=== PATIENT | male | born 1980 | race Caucasian/White ===

== ENCOUNTER 2022-05-13 14:38 | Outpatient (CLI) | payer BC, SELFPAY ==
[2022-05-13 13:43] LABS: Albumin* 4.6 g/dL (3.3-5.0)
[2022-05-13 13:46] LABS: Alkaline Phosphatase* 89 U/L (40-150); Aspartate Amino Transferase* 36 U/L (12-35); Bilirubin Direct* 0.2 mg/dL (0.0-0.5); Bilirubin Total* 1.1 mg/dL (0.1-1.5); Cholesterol* 225 mg/dL (90-199); HDL Cholesterol* 41 mg/dL (>=40); LDL Cholesterol Calculated 149 mg/dL (<100); Triglycerides* 177 mg/dL (40-149)
[2022-05-13 13:47] LABS: Alanine Aminotransferase* 57 U/L (4-50)
== END 2022-05-13 14:39 | disposition home or self-care (01) ==
PROVIDERS: PCP Emergency Medicine; Visit Provider Emergency Medicine
DX: Z00.00 Encounter for general adult medical examination without abnormal findings (principal); E78.5 Hyperlipidemia, unspecified; R53.83 Other fatigue; I10 Essential (primary) hypertension; F41.9 Anxiety disorder, unspecified; R73.01 Impaired fasting glucose
CPT/HCPCS: 80061; 80076

== ENCOUNTER 2022-05-14 17:44 | Outpatient (CLI) | payer BC, SELFPAY ==
[2022-05-17 07:55] LABS: Testosterone, Adult Male 425 ng/dL (300-890)
== END 2022-05-14 17:45 | disposition home or self-care (01) ==
LOC: LKVREF 17:47
PROVIDERS: PCP Emergency Medicine; Visit Provider Emergency Medicine
DX: R68.82 Decreased libido (principal)
CPT/HCPCS: 84403

== ENCOUNTER 2022-06-19 22:50 | Outpatient (CLI) | payer BC, SELFPAY ==
--- NOTE | 2022-07-02 11:46 | W.PM.SLEEP ---
Sleep Study Details Details Interpreting Provider: Jerardo Arndt MD Date of Sleep Study: 06/19/22 Sleep Study Details: STUDY TYPE:? Home ? BMI:? 26.9 ORDERING PROVIDER:? Amanda INDICATION:? Concerns about sleep apnea ? SLEEP SUMMARY:? 504 minutes monitored RESPIRATORY SUMMARY:? AHI 17.5, supine AHI 21.1, left lateral AHI 0.7 Low oxygen 88 0.1% of study oxygen less than 90% Snoring 8.7% PERIODIC LIMB MOVEMENTS OF SLEEP:? Not recorded CARDIAC:? Ranged 52-99, mean 68.5 IMPRESSION:? Mild obstructive sleep apnea with supine position dependency RECOMMENDATION: CPAP AutoSet 4-17, dental appliance or could consider a trial of positional therapy with avoidance of supine sleep
== END 2022-06-19 22:51 | disposition home or self-care (01) ==
LOC: SLEEP 22:51
PROVIDERS: PCP Emergency Medicine; Visit Provider Emergency Medicine
DX: G47.33 Obstructive sleep apnea (adult) (pediatric) (principal)
CPT/HCPCS: 95806

== ENCOUNTER 2022-07-08 19:37 | Emergency (ER) | payer BC, SELFPAY ==
[2022-07-08] VITALS (15 sets, daily range): BP systolic 122–140; BP diastolic 74–88; PULSE 74–97; RESP 20; TEMP 36.4; O2SAT 95–99; BMI 27.3
--- NOTE | 2022-07-08 20:24 | CRLHL7_ITS ---
For Patients: As a result of the Cures Act, medical imaging exams and procedure reports are released immediately into your electronic medical record. You may view this report before your referring provider. If you have questions, please contact your health care provider. DATE: 07/08/2022 CLINICAL HISTORY: Patient with transient diplopia. TECHNIQUE: Standard helical CT image acquisition of the neck up to the skull base after bolus intravenous contrast enhancement. Multiplanar reconstructed images performed on a separate workstation. COMPARISON: CT same day. FINDINGS: The origins of the great vessels from the aortic arch are patent. The origin of the right vertebral artery is patent. The origin of the left vertebral artery is patent. The common carotid arteries are patent. There is no stenosis at the origin of the right internal carotid artery. There is no stenosis at the origin of the left internal carotid artery. The rest of the cervical segments of the internal carotid arteries are patent up to the skull base. The left vertebral artery is dominant. The cervical segments of the vertebral arteries are patent up to the skull base. The visualized lung apices are unremarkable. The thyroid gland is unremarkable. The soft tissues of the neck are unremarkable. There are degenerative changes in the cervical spine. IMPRESSION: Normal CT angiogram of the neck. Please note that all CT scans at this facility use dose modulation, iterative reconstruction, and/or weight-based dosing when appropriate to reduce radiation dose to as low as reasonably achievable. Dictated by Alan Beaulieu MD @ 07/09/2022 6:01:50 AM (Electronically Signed)
--- NOTE | 2022-07-08 20:24 | CRLHL7_ITS ---
For Patients: As a result of the Century Cures Act, medical imaging exams and procedure reports are released immediately into your electronic medical record. You may view this report before your referring provider. If you have questions, please contact your health care provider. DATE: 07/08/2022 CLINICAL HISTORY: Patient with transient diplopia. TECHNIQUE: Standard helical CT image acquisition through the intracranial circulation following intravenous administration of contrast material with bolus tracking. Multiplanar reconstructed images were performed and interpreted. COMPARISON: CT same day. FINDINGS: There is no proximal intracranial large vessel occlusion. There is an incidental 2.5mm right supraclinoid ICA aneurysm. The right middle cerebral artery and its branches are normal. The right anterior cerebral artery and its branches are normal. The left internal carotid artery is normal. The left middle cerebral artery and its branches are normal. The left anterior cerebral artery and its branches are normal. The anterior communicating artery is well visualized and appears normal. The right vertebral artery and PICA are normal. The left vertebral artery and PICA are normal. The left vertebral artery is dominant. The basilar artery is patent and appears normal. The right posterior cerebral artery is normal. The left posterior cerebral artery is normal. The visualized venous structures are patent. IMPRESSION: 1. No proximal intracranial large vessel occlusion. 2. Incidental 2.5mm right supraclinoid ICA aneurysm. Telehealth consultation with [facility]s Neurointerventional team for management of this aneurysm can be arranged by calling . Please note that all CT scans at this facility use dose modulation, iterative reconstruction, and/or weight-based dosing when appropriate to reduce radiation dose to as low as reasonably achievable. Dictated by Alan Beaulieu MD @ 07/09/2022 6:06:31 AM (Electronically Signed)
--- NOTE | 2022-07-08 20:24 | CRLHL7_ITS ---
For Patients: As a result of the Century Cures Act, medical imaging exams and procedure reports are released immediately into your electronic medical record. You may view this report before your referring provider. If you have questions, please contact your health care provider. INDICATION: Transient double vision. TECHNIQUE: CT head without contrast. COMPARISON: None. FINDINGS: Cerebral parenchyma: No evidence of acute territorial infarct. No acute intraparenchymal hemorrhage. No significant mass effect/midline shift. Normal ragsdale-white matter differentiation. Extra-axial spaces: No extra-axial collection or hemorrhage. Ventricles: Unremarkable. Calvarium: Intact. Visualized paranasal sinuses/mastoid air cells: Grossly clear. Posterior fossa: No cerebellar tonsillar herniation. Visualized orbits: Unremarkable. IMPRESSION: No acute intracranial abnormality. Please note that all CT scans at this facility use dose modulation, iterative reconstruction, and/or weight-based dosing when appropriate to reduce radiation dose to as low as reasonably achievable. Dictated by Avel Domingo MD @ 07/08/2022 9:45:49 PM (Electronically Signed)
--- NOTE | 2022-07-08 20:50 | ED.NURSE ---
18G IV placed in right AC. Blood drawn and sent to lab. Pt to Ct
[2022-07-08 21:03] LABS: Basophils Absolute Auto 0.05 K/uL (0.00-0.30); Basophils Percent Auto 0.5 % (0.0-3.0); Eosinophils Absolute Auto 0.26 K/uL (0.00-0.50); Eosinophils Percent Auto 2.5 % (0.0-7.0); Hematocrit 46.7 % (37.0-53.0); Hemoglobin* 16.1 gm/dL (13.5-17.5); Immature Granulocytes Abs Auto 0.05 K/uL (0.00-0.30); Immature Granulocytes Pct Auto 0.5 %; Lymphocytes Absolute Auto 3.22 K/uL (0.90-2.90); Lymphocytes Percent Auto 30.7 % (20-44); Mean Corpuscular HGB Conc 35 gm/dL (32-36); Mean Corpuscular Hemoglobin 32 pg (26-34); Mean Corpuscular Volume 92 fL (80-100); Monocytes Percent Auto 6.5 % (0.0-11.0); Neutrophils Absolute Auto 6.24 K/uL (1.7-7.0); Neutrophils Percent Auto 59.3 % (42.0-72.0); Platelet Count* 233 K/uL (140-440); RDW Coefficient of Variation % 11.8 % (11.5-15.5); Red Blood Count 5.06 m/uL (4.30-5.90)
[2022-07-08] MEDS: 0.9 % SODIUM CHLORIDE 1000 ml 1,000 ML IV (21:06)
[2022-07-08 21:07] LABS: Slide Review Reflex No
[2022-07-08 21:10] LABS: Chloride* 104 mmol/L (96-114)
[2022-07-08 21:11] LABS: Potassium* 3.6 mmol/L (3.6-5.1); Sodium* 138 mmol/L (135-149)
[2022-07-08 21:14] LABS: Blood Urea Nitrogen* 17 mg/dL (5-24); Calcium* 9.3 mg/dL (8.4-10.6); Carbon Dioxide* 26 mmol/L (20-32); Glucose* 114 mg/dL (60-115)
[2022-07-08 21:16] LABS: Ethanol* < 0.01 % (0.01-0.03)
--- NOTE | 2022-07-08 21:21 | ED_ITS ---
HPI - General Adult General Chief complaint: Eye Problems Stated complaint: Double Vision Earlier Time Seen by Provider: 07/08/22 20:23 History of Present Illness HPI narrative: 42-year-old man presenting to the emergency department with concern of double vision. This occurred about 6:30 p.m. for about 15 minutes. This would have been about 2 hours ago. Works in [employer] with a good deal of recent stress at work. Did not have headache. There was no discoordination. He does have a history of vertigo a few times over the years and this is not that. Double vision was horizontal. No loss of vision. Clearly was double vision and when he covered one eye or the other it would resolve. No recent cough or cold symptoms. No loss of strength or sensation. Does smoke. Father with ?mini- stroke in early 40s and subsequent strokes ultimately [place] at 62 and ; uncle also with early cerebral/cardiovascular disease. Does drink alcohol. No other symptoms with this. Does note some intermittent left cheek numbness but this is from graft harvest years ago. Related Data Previous Rx's Medication Instructions Recorded escitalopram oxalate 10 mg tablet 10 mg PO QDAY #90 tabs 05/14/22 lisinopril 10 mg tablet 10 mg PO QDAY #90 tabs 05/14/22 omeprazole 20 mg capsule,delayed 20 mg PO QDAY PRN acid reflux #90 05/28/22 release caps Allergies Allergy/AdvReac Type Severity Reaction Status Date / Time amoxicillin Allergy Intermediate Hives Verified 07/03/22 14:50 Penicillins Allergy Intermediate Hives Verified 07/03/22 14:50 Review of Systems Status of ROS: Reports: 10 or more systems reviewed and unremarkable except as noted in History and below [facility] Medical History Apnea Elevated fasting glucose Encounter for preventive health examination Family history of early CAD Fatigue Low libido LUISITO (obstructive sleep apnea) Snoring Family History (Updated 05/13/22 @ 08:45 by Bernie Cottrell) Father Stroke Coronary artery disease Social History Narrative: former smoker age [age] 1ppd, started again 1/2 -1 ppd Smoking Status: Current every day smoker What tobacco products do you use: cigarettes Do you use any of these nicotine containing products: Other Second hand tobacco smoke exposure: No How often do you have a drink containing alcohol: 4 or more times a week How many standard drinks containing alcohol do you have on a typical day: 1 or 2 How often do you have six or more drinks on one occasion: Never AUDIT-C Alcohol total score: 4 Little interest or pleasure in doing things: not at all Feeling down, depressed, or hopeless: not at all Exam Narrative: Exam Narrative: Pleasant man. NAD. Skin is warm and dry. Extremities are without edema. He is moving all extremities without difficulty; good strength throughout. Well- perfused. Cranial nerves 2-12 are intact. No apparent loss of sensation. Conjugate gaze/reflection. Speech is fluid. Head is atraumatic. No pain apparent to movement of his neck. Breathing easily. Oropharynx is unremarkable; other than hyperemic Lungs are clear Abdomen is soft nontender. Const: Vital Signs, click to edit/add: Vital Signs - 24 hr 07/08/22 20:09 07/08/22 22:04 07/08/22 22:05 Temperature 97.6 F Pulse Rate 82 87 Pulse Rate [Right Pulse Oximeter] 97 Respiratory Rate 20 Blood Pressure 128/81 Blood Pressure [Ri ght Upper Arm] 131/74 Pulse Oximetry 98 96 96 Oxygen Delivery Me thod Room Air 07/08/22 22:06 07/08/22 22:30 07/08/22 22:31 Temperature Pulse Rate 84 86 Pulse Rate [Right Pulse Oximeter] Respiratory Rate Blood Pressure 134/82 Blood Pressure [Ri ght Upper Arm] Pulse Oximetry 97 95 97 Oxygen Delivery Me thod 07/08/22 22:32 07/08/22 22:45 07/08/22 23:00 Temperature Pulse Rate 87 76 Pulse Rate [Right Pulse Oximeter] Respiratory Rate Blood Pressure Blood Pressure [Ri ght Upper Arm] Pulse Oximetry 97 97 98 Oxygen Delivery Me thod 07/08/22 23:02 07/08/22 23:03 07/08/22 23:15 Temperature Pulse Rate 82 80 81 Pulse Rate [Right Pulse Oximeter] Respiratory Rate Blood Pressure 140/88 H Blood Pressure [Ri ght Upper Arm] Pulse Oximetry 98 96 97 Oxygen Delivery Me thod 07/08/22 23:30 07/08/22 23:31 07/08/22 23:45 Temperature Pulse Rate 77 74 74 Pulse Rate [Right Pulse Oximeter] Respiratory Rate Blood Pressure 122/76 Blood Pressure [Ri ght Upper Arm] Pulse Oximetry 98 99 98 Oxygen Delivery Me thod Documenting provider has reviewed patient's vital signs: yes Course Vital Signs Vital signs: Initial Vital Signs Temperature 97.6 F 07/08/22 20:09 Temperature Source Temporal Artery Scan 07/08/22 20:09 Pulse Rate 97 07/08/22 20:09 Respiratory Rate 20 07/08/22 20:09 Blood Pressure 131/74 07/08/22 20:09 Blood Pressure Mean 93 07/08/22 20:09 Blood Pressure Position Sitting 07/08/22 20:09 Pulse Oximetry 98 07/08/22 20:09 Oxygen Delivery Method 07/08/22 20:09 Vital Signs Temperature 97.6 F 07/08/22 20:09 Pulse Rate 97 07/08/22 20:09 Respiratory Rate 20 07/08/22 20:09 Blood Pressure 131/74 07/08/22 20:09 Pulse Oximetry 98 07/08/22 20:09 Oxygen Delivery Method 07/08/22 20:09 Temperature 97.6 F 07/08/22 20:09 Pulse Rate 74 07/08/22 23:45 Respiratory Rate 20 07/08/22 20:09 Blood Pressure 122/76 07/08/22 23:31 Pulse Oximetry 98 07/08/22 23:45 Oxygen Delivery Method 07/08/22 20:09 Medical Decision Making MDM Narrative Medical decision making narrative: Certainly of most concern is potential stroke-like event. Risk factors reviewed. Has had recent lab work including lipids. More emergent labs collected here though. Received IV fluids. Labs are reassuring. I think MRI would be ideal in this circumstance however not available at this time. Noncontrast CT head and angio of head and neck are done. These thankfully are unremarkable other than per Radiology finding as below -- 2. Incidental 2.5mm right supraclinoid ICA aneurysm. I did review these images. No further event during period of observation in the ER. Lab Data Lab results reviewed: Yes I reviewed the patient's lab results Labs: Lab Results 07/08/22 07/08/22 07/08/22 Range/Units 20:50 20:50 20:50 WBC 10.50 (4.50-11.00) K/uL RBC 5.06 (4.30-5.90) m/uL Hgb 16.1 (13.5-17.5) gm/dL Hct 46.7 (37.0-53.0) % MCV 92 (80-100) fL MCH 32 (26-34) pg MCHC 35 (32-36) gm/dL RDW Coeff of Christ 11.8 (11.5-15.5) % Plt Count 233 (140-440) K/uL Neut % (Auto) 59.3 (42.0-72.0) % Lymph % (Auto) 30.7 (20-44) % Lyman % (Auto) 6.5 (0.0-11.0) % Eos % (Auto) 2.5 (0.0-7.0) % Baso % (Auto) 0.5 (0.0-3.0) % Neut # (Auto) 6.24 (1.7-7.0) K/uL Lymph # (Auto) 3.22 H (0.90-2.90) K/uL Lyman # (Auto) 0.70 (0.00-0.90) K/UL Eos # (Auto) 0.26 (0.00-0.50) K/uL Baso # (Auto) 0.05 (0.00-0.30) K/uL Abs Immat Gran (auto) 0.05 (0.00-0.30) K/uL Imm/Tot Granulo (auto) 0.5 % Sodium 138 (135-149) mmol/L Potassium 3.6 (3.6-5.1) mmol/L Chloride 104 (96-114) mmol/L Carbon Dioxide 26 (20-32) mmol/L BUN 17 (5-24) mg/dL Creatinine 0.9 (0.5-1.5) mg/dL Estimated Creat Clear 105.83 Estimated GFR 109 ml/min Glucose 114 (60-115) mg/dL Calcium 9.3 (8.4-10.6) mg/dL Troponin I < 0.01 L (0.01-0.04) ng/mL C-Reactive Protein 0.6 (0.5-1.0) mg/dL NT-Pro-B Natriuret Pep 18 (0-125) PG/mL Ethyl Alcohol < 0.01 L (0.01-0.03) % POC Troponin I (0.01-0.04) ng/ml 07/08/22 Range/Units 20:50 WBC (4.50-11.00) K/uL RBC (4.30-5.90) m/uL Hgb (13.5-17.5) gm/dL Hct (37.0-53.0) % MCV (80-100) fL MCH (26-34) pg MCHC (32-36) gm/dL RDW Coeff of Christ (11.5-15.5) % Plt Count (140-440) K/uL Neut % (Auto) (42.0-72.0) % Lymph % (Auto) (20-44) % Lyman % (Auto) (0.0-11.0) % Eos % (Auto) (0.0-7.0) % Baso % (Auto) (0.0-3.0) % Neut # (Auto) (1.7-7.0) K/uL Lymph # (Auto) (0.90-2.90) K/uL Lyman # (Auto) (0.00-0.90) K/UL Eos # (Auto) (0.00-0.50) K/uL Baso # (Auto) (0.00-0.30) K/uL Abs Immat Gran (auto) (0.00-0.30) K/uL Imm/Tot Granulo (auto) % Sodium (135-149) mmol/L Potassium (3.6-5.1) mmol/L Chloride (96-114) mmol/L Carbon Dioxide (20-32) mmol/L BUN (5-24) mg/dL Creatinine (0.5-1.5) mg/dL Estimated Creat Clear Estimated GFR ml/min Glucose (60-115) mg/dL Calcium (8.4-10.6) mg/dL Troponin I (0.01-0.04) ng/mL C-Reactive Protein (0.5-1.0) mg/dL NT-Pro-B Natriuret Pep (0-125) PG/mL Ethyl Alcohol (0.01-0.03) % POC Troponin I 0.00 L (0.01-0.04) ng/ml ECG Data Attestation: I personally reviewed and interpreted this ECG as follows: (Normal sinus rhythm. Evolving right bundle branch block. Rate of 79.) Discharge Plan Discharge Clinical Impression: Transient diplopia, Nicotine dependence Patient Disposition: Home w/ Parent or Adult Condition: Stable Additional Instructions: Stay well-hydrated. Try to get in little heart pumping exercise daily. Talk to your cigarette quit vera and get moving on that project again. I do not know what sort of resources the quitplan has anymore but see this pamphlet as a part of your discharge. Take 81 mg of aspirin daily. Anticipate a call tomorrow about this MRI here. You may need to involve your insurance company in this scheduling. Follow up results with your primary care provider. Review related labs with them as well. Prescriptions: No Action escitalopram oxalate 10 mg tablet 10 mg PO QDAY Qty: 90 3RF lisinopril 10 mg tablet 10 mg PO QDAY Qty: 90 3RF omeprazole 20 mg capsule,delayed release(DR/EC) 20 mg PO QDAY PRN (Reason: acid reflux) Qty: 90 3RF Follow Up/Referrals: Nasra Patel MD [Primary Care Provider] - Stand Alone Forms: [employer] Info Instructions
[2022-07-08 21:30] LABS: Creatinine* 0.9 mg/dL (0.5-1.5); Est. Creatinine Clearance* 105.83; Estimated Glomerular Filt Rate 109 ml/min
[2022-07-08 21:43] LABS: C Reactive Protein* 0.6 mg/dL (0.5-1.0)
[2022-07-08 22:08] LABS: NT Pro B Type NatriureticPept* 18 PG/mL (0-125)
[2022-07-08 22:12] LABS: Troponin I* < 0.01 ng/mL (0.01-0.04)
== END 2022-07-08 23:57 | disposition home or self-care (01) ==
PROVIDERS: Emergency Provider Family Medicine; PCP Emergency Medicine
DX: H53.2 Diplopia (principal); F17.210 Nicotine dependence, cigarettes, uncomplicated
CPT/HCPCS: 36415; 70450; 70496; 70498; 80048; 82077; 83880; 84484; 85025; 86140; 93005; 96360; 99284; J7030; Q9967

== ENCOUNTER 2022-07-11 11:00 | Outpatient (CLI) | payer BC, SELFPAY ==
--- NOTE | 2022-07-11 11:15 | CRLHL7_ITS ---
For Patients: As a result of the Century Cures Act, medical imaging exams and procedure reports are released immediately into your electronic medical record. You may view this report before your referring provider. If you have questions, please contact your health care provider. INDICATION: Transient diplopia. TECHNIQUE: Multiplanar multisequence noncontrast MR images acquired through the brain. COMPARISON: CT brain 07/08/2022. FINDINGS: The ventricles and sulci are within normal limits for patient age. No mass effect or midline shift. Two punctate T2 FLAIR hyperintensities in the supratentorial white matter, nonspecific. No intracranial hemorrhage or pathologic extra-axial fluid collection. No diffusion restriction to suggest acute infarction. The major arterial flow voids of the skullbase are preserved. The globes are symmetric. Mild ethmoid and maxillary sinus mucosal thickening. The mastoid air cells are clear. IMPRESSION: 1. No acute infarction, mass effect, or intracranial hemorrhage. 2. Two punctate FLAIR hyperintensities in the supratentorial white matter are nonspecific, though typical for sequelae of minimal chronic microvascular ischemic changes or migraine headaches. Dictated by Bayron Marks MD @ 07/11/2022 2:05:07 PM (Electronically Signed)
== END 2022-07-11 11:01 | disposition home or self-care (01) ==
LOC: MRI 11:01
PROVIDERS: PCP Emergency Medicine; Visit Provider Family Medicine
DX: H53.2 Diplopia (principal); I67.82 Cerebral ischemia
CPT/HCPCS: 70551

== ENCOUNTER 2023-07-11 08:00 | Outpatient (REF) | payer BC, SELFPAY | END 2023-07-11 08:01 | disposition home or self-care (01) | LOC: NFLDREF 08:00 | PROVIDERS: PCP Emergency Medicine; Referring Provider Emergency Medicine; Visit Provider Emergency Medicine | DX: E78.5 Hyperlipidemia, unspecified (principal); I10 Essential (primary) hypertension; R73.01 Impaired fasting glucose | CPT/HCPCS: 80053; 80061 ==

== ENCOUNTER 2024-10-11 09:00 | Outpatient (CLI) | payer OTHER, SELFPAY | END 2024-10-11 09:01 | disposition home or self-care (01) | LOC: NFLDREF 10-12 09:02 | PROVIDERS: PCP Emergency Medicine; Referring Provider Emergency Medicine; Visit Provider Emergency Medicine | DX: E78.5 Hyperlipidemia, unspecified (principal); I10 Essential (primary) hypertension; Z13.29 Encounter for screening for other suspected endocrine disorder | CPT/HCPCS: 80048; 80061; 84443 ==

== ENCOUNTER 2024-10-25 11:31 | Outpatient (CLI) | payer OTHER, SELFPAY ==
--- NOTE | 2024-10-25 12:54 | P.ANES_ITS ---
Anesthesia Charges Start Date/Time Anesthesia Start Date: 10/25/24 Anesthesia Start Time: 12:26 Stop Date/Time Anesthesia Stop Date: 10/25/24 Anesthesia Stop Time: 12:50 Coding CPT Codes CPT Codes: ANES LWR INTST NDSC NOS - 13467 ([id number]) P3 - PATIENT W/SEVERE SYS DISEASE, QX - ORE STORAGE DRIER SVC W/ MD MED DIRECTION, QK - PALLET STONE POSITIONER 2-4 CNCRNT ANES PROC
--- NOTE | 2024-10-25 12:54 | W.ANESCHARGE ---
Anesthesia Charges Start Date/Time Anesthesia Start Date: 10/25/24 Anesthesia Start Time: 12:26 Stop Date/Time Anesthesia Stop Date: 10/25/24 Anesthesia Stop Time: 12:50 Coding CPT Codes CPT Codes: ANES LWR INTST NDSC NOS - 95572 ([id number]) P3 - PATIENT W/SEVERE SYS DISEASE, QX - BATTERYMAN SVC W/ MD MED DIRECTION, QK - RESPIRATORY CARE SPECIALIST 2-4 CNCRNT ANES PROC
--- NOTE | 2024-10-25 13:17 | P.ANES_ITS ---
Anesthesia Charges Start Date/Time Anesthesia Start Date: 10/25/24 Anesthesia Start Time: 12:26 Stop Date/Time Anesthesia Stop Date: 10/25/24 Anesthesia Stop Time: 12:50 Coding CPT Codes CPT Codes: ANES LWR INTST NDSC NOS - 68600 ([id number]) QK - POT ROOM TAPPER 2-4 CNCRNT ANES PROC, QX - TRAIN ANNOUNCER SVC W/ MED DIRECTION, P3 - PATIENT W/SEVERE SYS DISEASE
--- NOTE | 2024-10-25 13:17 | W.ANESCHARGE ---
Anesthesia Charges Start Date/Time Anesthesia Start Date: 10/25/24 Anesthesia Start Time: 12:26 Stop Date/Time Anesthesia Stop Date: 10/25/24 Anesthesia Stop Time: 12:50 Coding CPT Codes CPT Codes: ANES LWR INTST NDSC NOS - 41291 ([id number]) QK - DIRECTOR OF OFFICIATING 2-4 CNCRNT ANES PROC, QX - CHIEF KNOWLEDGE OFFICER SVC W/ MED DIRECTION, P3 - PATIENT W/SEVERE SYS DISEASE
== END 2024-10-25 11:32 | disposition home or self-care (01) ==
LOC: OP CLINIC 11:31
PROVIDERS: PCP Emergency Medicine; Visit Provider Surgery
DX: Z12.11 Encounter for screening for malignant neoplasm of colon (principal); D12.8 Benign neoplasm of rectum; K57.30 Diverticulosis of large intestine without perforation or abscess without bleeding
CPT/HCPCS: 00811; 45385; 88305; J2704

== ENCOUNTER 2025-06-18 11:47 | Emergency (ER) | payer OTHER, SELFPAY ==
[2025-06-18 11:53] VITALS: BP 167/87; PULSE 96; RESP 18; TEMP 36.9; O2SAT 98; BMI 26.6
--- NOTE | 2025-06-18 11:57 | ED.ABDPAIN ---
HPI - Abdominal Pain General Time Seen by Provider: 11:58 Date Seen: 06/18/25 Chief Complaint: Abdominal Pain Stated Complaint: poss kidney stones Time Seen by Provider: 06/18/25 11:50 Source: patient and RN notes reviewed Mode of arrival: ambulatory Limitations: no limitations History of Present Illness HPI narrative: This 45-year-old male is presenting with lower abdominal pain, reported to nursing that it is worse on the right side in radiates to his back and groin. He has had some nausea but no vomiting. The nausea was severe and last night. He did not vomit however. He has had a history of urethral stricture, notes no change in urination, no dysuria, frequency, urgency or hematuria. He has had no fevers or chills. He has no history of kidney stones, there is a cousin with kidney stones but no other family history. He is not aware of anybody with appendicitis. He has had no abdominal surgery before. No stool changes. He states he has had a colonoscopy, they did find diverticulosis but he has no history of diverticulitis. He notes he had a similar brief episode this summer, was not quite as severe, just had symptoms for a day or so and went away so he never had any evaluation. He is scheduled to have a radiofrequency ablation in his lumbar spine this coming Friday, he is avoiding NSAIDs. He does note that there has been some rectal discomfort when his pain is more severe. The pain does intensify at times. Patient has history of urethral stricture, history of meningitis, former tobacco use absent now, aneurysm of internal carotid artery that has been evaluated and did not require any follow-up per patient report, obstructive sleep apnea, history of ankle surgery. Low back pain with degenerative changes, scheduled for radiofrequency ablation. Sulcal known to have hypertension, hyperlipidemia, GERD. MD elicited complaint: abdominal pain Related Data Previous Rx's ?Medication ?Instructions ?Recorded omeprazole 20 mg capsule,delayed 20 mg PO QDAY PRN acid reflux #90 08/12/24 release caps lisinopril 10 mg tablet 10 mg PO QDAY #90 tabs 06/02/25 ciprofloxacin HCl 500 mg tablet 250 mg (1/2 x 500 mg) PO BID #20 06/18/25 tabs metronidazole 500 mg tablet 500 mg PO TID #30 tabs 06/18/25 oxycodone 5 mg tablet 5 mg PO Q6H PRN pain #8 tabs 06/18/25 Allergies Allergy/AdvReac Type Severity Reaction Status Date / Time amoxicillin Allergy Intermediate Hives Verified 06/18/25 12:39 Penicillins Allergy Intermediate Hives Verified 06/18/25 12:39 Review of Systems Status of ROS Reports: 6 or more systems reviewed and unremarkable except as noted in History and below PFSH PFSH Medical History Urethral stricture ?N35.919 - Unspecified urethral stricture, male, unspecified site (ICD-10) Meningitis (1998) ?G03.9 - Meningitis, unspecified (ICD-10) Former cigarette smoker ?Z87.891 - Personal history of nicotine dependence (ICD-10) Aneurysm of internal carotid artery ?I67.1 - Cerebral aneurysm, nonruptured (ICD-10) LUISITO (obstructive sleep apnea) ?G47.33 - Obstructive sleep apnea (adult) (pediatric) (ICD-10) Surgical History History of ankle surgery ?Z98.890 - Other specified postprocedural states (ICD-10) Family History Father Stroke Coronary artery disease Brother Kidney disease Mother Thyroid disease Social History Narrative: former smoker Quit 08/2022 . No kids Employed Alcohol: 1 drink per day about What is your current living situation?: I presently have a place to live Problems where you live: no known problems In the past 12 months, utilities in danger of being shut off: no In past 12 months, lack of transportation kept you from medical appts, meetings, work, or getting things needed for daily living: no In the past 12 mos, have been you worried that your food would run out before you had money to buy more?: never true In the past 12 mos, the food you bought just didn't last and you didn't have money to buy more?: never true Smoking Status: Current every day smoker What tobacco products do you use: cigarettes Do you use any of these nicotine containing products: Other Second hand tobacco smoke exposure: No How often do you have a drink containing alcohol: 4 or more times a week How many standard drinks containing alcohol do you have on a typical day: 1 or 2 How often do you have six or more drinks on one occasion: Never AUDIT-C Alcohol total score: 4 How often does anyone, including family, friends and others, physically hurt you: never How often does anyone, including family, friends and others, insult or talk down to you: never How often does anyone, including family, friends and others, threaten you with harm: never How often does anyone, including family, friends and others, scream or curse at you: never Exam Const: Vital Signs, click to edit/add: Vital Signs - 24 hr 06/18/25 11:53 Temperature 98.5 F Pulse Rate [Right Pulse Oximeter] 96 Respiratory Rate 18 Blood Pressure [Ri ght Upper Arm] 167/87 H Pulse Oximetry 98 Oxygen Delivery Me thod Room Air This 45-year-old male is alert, interactive, no apparent distress. He is very pleasant, lying on the bed in exam room 3. Sclera clear, conjugate gaze, symmetrical facial function, speech normal. Lungs are clear, good air entry, no wheezing or crackles, no tachypnea. CV regular rate and rhythm, no murmur, normal S1-S2. Abdomen is soft, nondistended, normal bowel sounds. He has definite right lower quadrant pain with some guarding, do not note rebound at this time. I do not feel any underlying masses. There is no inguinal mass or tenderness. Documenting provider has reviewed patient's vital signs: yes Course Course ED Course: Reviewed with patient that I do have concerns about his pain pattern and exam, do worry about etiologies like appendicitis. He could have right-sided diverticulitis or colitis but think this is less likely. Kidney stones are a possibility but his exam seems to be more consistent with intra-abdominal pathology like appendicitis. We are going to proceed with CT imaging with IV contrast, will get appropriate labs. He is aware to be NPO at this time. This time, does not feel he needs anything for pain. Reevaluation(s) Time of Reevaluation #1: 13:14 Reevaluation #1: Have reviewed with patient his CT findings, he has diverticulitis. He meets criteria for outpatient management, no complications requiring inpatient. He is allergic to penicillin class of antibiotics, thus, have reviewed we need to use Cipro and Flagyl. He is aware of the tendinopathy issues associated with a fluoroquinolones. He will limit any strenuous physical exertion for the time being, he states he knows two people who ruptured tendons. We discussed low-fiber diet while he is acutely ill, a couple weeks after resolution, can go back to high-fiber diet. Will give him a few oxycodone for acute pain management, he will otherwise use Tylenol. Plan will be to still avoid NSAIDs in case they still might do this surgery on Friday, he will have to check with them. Vital Signs Vital signs: Initial Vital Signs Temperature 98.5 F 06/18/25 11:53 Temperature Source Temporal Artery Scan 06/18/25 11:53 Pulse Rate 96 06/18/25 11:53 Respiratory Rate 18 06/18/25 11:53 Blood Pressure 167/87 H 06/18/25 11:53 Blood Pressure Mean 113 H 06/18/25 11:53 Blood Pressure Position Sitting 06/18/25 11:53 Pulse Oximetry 98 06/18/25 11:53 Oxygen Delivery Method Room Air 06/18/25 11:53 Vital Signs Temperature 98.5 F 06/18/25 11:53 Pulse Rate 96 06/18/25 11:53 Respiratory Rate 18 06/18/25 11:53 Blood Pressure 167/87 H 06/18/25 11:53 Pulse Oximetry 98 06/18/25 11:53 Oxygen Delivery Method Room Air 06/18/25 11:53 Temperature 98.5 F 06/18/25 11:53 Pulse Rate 96 06/18/25 11:53 Respiratory Rate 18 06/18/25 11:53 Blood Pressure 167/87 H 06/18/25 11:53 Pulse Oximetry 98 06/18/25 11:53 Oxygen Delivery Method Room Air 06/18/25 11:53 MDM - Abdominal Pain Lab Data Attestation: I reviewed the patient's lab results. Labs: Lab Results 06/18/25 06/18/25 Range/Units 12:14 12:20 WBC 13.94 H (4.50-11.00) K/uL RBC 4.74 (4.30-5.90) m/uL Hgb 14.9 (13.5-17.5) gm/dL Hct 44.9 (37.0-53.0) % MCV 95 (80-100) fL MCH 31 (26-34) pg MCHC 33 (32-36) gm/dL RDW Coeff of Christ 12.6 (11.5-15.5) % Plt Count 192 (140-440) K/uL Neut % (Auto) 81.0 H (42.0-72.0) % Lymph % (Auto) 10.9 L (20-44) % Taylor % (Auto) 6.8 (0.0-11.0) % Eos % (Auto) 0.7 (0.0-7.0) % Baso % (Auto) 0.4 (0.0-3.0) % Neut # (Auto) 11.30 H (1.7-7.0) K/uL Lymph # (Auto) 1.50 (0.90-2.90) K/uL Taylor # (Auto) 0.90 (0.00-0.90) K/UL Eos # (Auto) 0.10 (0.00-0.50) K/uL Baso # (Auto) 0.10 (0.00-0.30) K/uL Abs Immat Gran (auto) 0.00 (0.00-0.30) K/uL Imm/Tot Granulo (auto) 0.2 % Sodium 139 (135-149) mmol/L Potassium 4.1 (3.6-5.1) mmol/L Chloride 101 (96-114) mmol/L Carbon Dioxide 28 (20-32) mmol/L Anion Gap 10 (7-15) mEq/L BUN 12 (5-24) mg/dL Creatinine 1.0 (0.5-1.5) mg/dL Estimated Creat Clear 89.30 Estimated GFR 94 ml/min Glucose 130 H (60-115) mg/dL Lactate 1.2 (0.5-1.9) mmol/L Calcium 9.3 (8.4-10.6) mg/dL Total Bilirubin 0.8 (0.1-1.5) mg/dL AST 18 (12-35) U/L ALT 24 (4-50) U/L Alkaline Phosphatase 48 (40-150) U/L C-Reactive Protein 6.7 H (0.5-1.0) mg/dL Total Protein 7.0 (6.0-8.3) g/dL Albumin 4.2 (3.3-5.0) g/dL Urine Color Yellow (Yellow) Urine Appearance Clear (Clear) Urine pH 8.5 (5.0-8.5) Ur Specific [place] 1.020 (1.000-1.030) Urine Protein Negative (Negative) Urine Glucose (UA) Negative (Negative) Urine Ketones Negative (Negative) Urine Blood Negative (Negative) Urine Nitrite Negative (Negative) Urine Bilirubin Negative (Negative) Urine Urobilinogen 0.2 (0.2-1.0) Ur Leukocyte Esterase Negative (Negative) Urine RBC 0-2 (0-2) Urine WBC 0-2 (0-5) Ur Squamous Epith Cells None (None-Few) Urine Bacteria None (None) Imaging Data CT scan - abdomen: Attestation: I have reviewed the pertinent imaging results. My impression: Do see inflammatory change in the pelvis, await Radiology over-read for further differentiation. Radiologist's impression: Patient: PEG VENTURA Facility:?[facility] Patient ID:?[id number] Site Patient ID:?[id number]. Site :?[id number] Study:?CT-Abdomen/Pelvis 85CC ISOVUE 370-06/18/2025 12:38:25 PM Ordering Physician:Latricia Lu Final Report: INDICATION: Right lower quadrant pain. TECHNIQUE: Axial intravenously infused CT cuts were performed from above the diaphragm to below the ischial tuberosities with the infusion of 85 mL of Isovue-370. FINDINGS: The appendix is not inflamed. There is pericolonic edema of the mid sigmoid colon within a trace of free fluid in the pelvis are consistent with moderate acute sigmoid diverticulitis. There is no abscess. The small bowel appears normal. There are r occasional small liver cysts. The spleen, pancreas, adrenals and kidneys appear normal. There are no enlarged retroperitoneal or mesenteric lymph nodes. The urinary bladder, seminal vesicles and prostate gland appear normal. There is no iliac or inguinal lymphadenopathy. There is mild atelectasis at the right lung base. There are no lytic or sclerotic skeletal lesions. IMPRESSION: Moderate acute sigmoid diverticulitis. There is no abscess. Please note that all CT scans at this facility use dose modulation, iterative reconstruction, and/or weight-based dosing when appropriate to reduce radiation dose to as low as reasonably achievable. Dictated by Arnaldo Foley MD @ 06/18/2025 1:03:47 PM (Electronic Signature) Discharge Plan Discharge Clinical Impression: Diverticulitis of sigmoid colon Patient Disposition: Home, Self-Care Condition: Stable Instructions: Diverticulitis (ED), Diverticulitis Diet (ED) Additional Instructions: Start Cipro and Flagyl MARY JANE, take as prescribed. Follow low residue/low-fiber diet while you have acute diverticulitis, couple weeks after resolution of your symptoms, can go back on a high-fiber diet. Use Tylenol 1000 mg 3 times a day baseline for pain. Have written for few tablets of oxycodone if you have more severe pain. These can be constipating, may need to go on MiraLax and or senna while using the oxycodone. You will need to talk to your spine surgeon regarding surgery on Friday, I cannot answer whether or not they will be willing to do this in the setting of acute diverticulitis. Schedule follow-up within the next week in clinic for recheck. Otherwise, if you develop severe worsening of your abdominal pain, start to have fevers with worsening abdominal pain or vomiting with worsening abdominal pain, do need to be re-evaluated in the ED. Activity Level: Activity as Tolerated Prescriptions: New ciprofloxacin HCl 500 mg tablet 250 mg PO BID Qty: 20 0RF metronidazole 500 mg tablet 500 mg PO TID Qty: 30 0RF oxycodone 5 mg tablet 5 mg PO Q6H PRN (Reason: pain) Qty: 8 0RF No Action lisinopril 10 mg tablet 10 mg PO QDAY Qty: 90 3RF omeprazole 20 mg capsule,delayed release(DR/EC) 20 mg PO QDAY PRN (Reason: acid reflux) Qty: 90 0RF Follow Up/Referrals: Ksenia Chowdary PA-C [Primary Care Provider, Family Practice] Stand Alone Forms: Apptentive Info Instructions
--- NOTE | 2025-06-18 12:13 | CRLHL7_ITS ---
For Patients: As a result of the Century Cures Act, medical imaging exams and procedure reports are released immediately into your electronic medical record. You may view this report before your referring provider. If you have questions, please contact your health care provider. INDICATION: Right lower quadrant pain. TECHNIQUE: Axial intravenously infused CT cuts were performed from above the diaphragm to below the ischial tuberosities with the infusion of 85 mL of Isovue-370. FINDINGS: The appendix is not inflamed. There is pericolonic edema of the mid sigmoid colon within a trace of free fluid in the pelvis are consistent with moderate acute sigmoid diverticulitis. There is no abscess. The small bowel appears normal. There are r occasional small liver cysts. The spleen, pancreas, adrenals and kidneys appear normal. There are no enlarged retroperitoneal or mesenteric lymph nodes. The urinary bladder, seminal vesicles and prostate gland appear normal. There is no iliac or inguinal lymphadenopathy. There is mild atelectasis at the right lung base. There are no lytic or sclerotic skeletal lesions. IMPRESSION: Moderate acute sigmoid diverticulitis. There is no abscess. Please note that all CT scans at this facility use dose modulation, iterative reconstruction, and/or weight-based dosing when appropriate to reduce radiation dose to as low as reasonably achievable. Dictated by Arnaldo Foley MD @ 06/18/2025 1:03:47 PM (Electronically Signed)
[2025-06-18 12:28] LABS: Lactate* 1.2 mmol/L (0.5-1.9)
[2025-06-18 12:29] LABS: Hematocrit* 44.9 % (37.0-53.0); Hemoglobin* 14.9 gm/dL (13.5-17.5); Immature Granulocytes Pct Auto 0.2 %; Mean Corpuscular HGB Conc 33 gm/dL (32-36); Mean Corpuscular Hemoglobin 31 pg (26-34); Mean Corpuscular Volume 95 fL (80-100); RDW Coefficient of Variation % 12.6 % (11.5-15.5); Red Blood Count* 4.74 m/uL (4.30-5.90); White Blood Count* 13.94 K/uL (4.50-11.00)
[2025-06-18 12:30] LABS: Appearance Urine Clear (Clear)
[2025-06-18 12:47] LABS: Immature Granulocytes Abs Auto 0.00 K/uL (0.00-0.30); Lymphocytes Absolute Auto 1.50 K/uL (0.90-2.90); Slide Review Reflex No
[2025-06-18 12:50] LABS: Albumin* 4.2 g/dL (3.3-5.0); Chloride* 101 mmol/L (96-114); Sodium* 139 mmol/L (135-149)
[2025-06-18 12:51] LABS: Potassium* 4.1 mmol/L (3.6-5.1)
[2025-06-18 12:54] LABS: Alanine Aminotransferase* 24 U/L (4-50); Alkaline Phosphatase* 48 U/L (40-150); Anion Gap 10 mEq/L (7-15); Aspartate Amino Transferase* 18 U/L (12-35); Bilirubin Total* 0.8 mg/dL (0.1-1.5); Blood Urea Nitrogen* 12 mg/dL (5-24); Calcium* 9.3 mg/dL (8.4-10.6); Carbon Dioxide* 28 mmol/L (20-32); Creatinine* 1.0 mg/dL (0.5-1.5); Est. Creatinine Clearance* 89.30; Estimated Glomerular Filt Rate 94 ml/min; Glucose* 130 mg/dL (60-115); Total Protein* 7.0 g/dL (6.0-8.3)
== END 2025-06-18 13:32 | disposition home or self-care (01) ==
PROVIDERS: Emergency Provider Family Medicine; PCP Physician Assistant Medical
DX: K57.32 Diverticulitis of large intestine without perforation or abscess without bleeding (principal)
CPT/HCPCS: 36415; 74177; 80053; 81001; 83605; 85025; 86140; 99284; 99285; Q9967